=== PATIENT | female | born 1995 | race Caucasian/White ===

== ENCOUNTER 2020-03-12 21:20 | Emergency (ER) | payer OTHER ==
[2020-03-12] MEDS ORDERED: ACETAMINOPHEN 325 MG TABLET PO ONE (21:53)
[2020-03-12] MEDS ORDERED: IBUPROFEN 600 MG TABLET PO ONE (21:53)
--- NOTE | 2020-03-12 21:57 | ER Document Report ---
ED Medical Screen (RME) - General Chief Complaint: Foot Pain Stated Complaint: RIGHT FOOT INJURY Time Seen by Provider: 03/12/20 21:49 Mode of Arrival: Wheelchair Information source: Patient Notes: Pt with c/o R foot pain after she abruptly got up off the couch. She reports a hx of foot fracture in 2012. Strong dorsalis pedis pulse, no obvious deformity. I have greeted and performed a rapid initial assessment of this patient. A comprehensive ED assessment and evaluation of the patient, analysis of test results and completion of the medical decision making process will be conducted by additional ED providers. I have specifically instructed the patient or family members with the patient to immediately return to any nursing staff should anything change in the patient's condition or with their chief complaint. - Related Data Allergies/Adverse Reactions: No Known Allergies Allergy (Verified 03/12/20 21:47) Home Medications: levothyroxine, salima Past Medical History - Social History Frequency of alcohol use: None Drug Abuse: None Physical Exam - Vital signs Vitals: Temp Pulse Resp BP Pulse Ox 98.5 F 103 H 15 145/81 H 100 03/12/20 21:45 03/12/20 21:45 03/12/20 21:45 03/12/20 21:45 03/12/20 21:45 Course - Vital Signs Vital signs: Temp Pulse Resp BP Pulse Ox 98.5 F 103 H 15 145/81 H 100 03/12/20 21:45 03/12/20 21:45 03/12/20 21:45 03/12/20 21:45 03/12/20 21:45
--- NOTE | 2020-03-12 22:43 | RADIOLOGY REPORT (SQ) ---
EXAM DESCRIPTION: XR FOOT 3 OR MORE VIEWS COMPLETED DATE/TME: 03/12/2020 21:52 CLINICAL HISTORY: 24 years, Female, foot pain COMPARISON: None. NUMBER OF VIEWS: 3 TECHNIQUE: 3 views right foot LIMITATIONS: None. FINDINGS: Negative for acute fracture or dislocation. Soft tissues are unremarkable IMPRESSION: Negative exam copyright 2011 [employer]- All Rights Reserved
[2020-03-13 01:45] VITALS: BP 122/59
== END 2020-03-13 02:59 | disposition left against medical advice (07) ==
LOC: ER 21:20
DX: M79.671 Pain in right foot (principal); Z79.899 Other long term (current) drug therapy; Z79.3 Long term (current) use of hormonal contraceptives; Z53.20 Procedure and treatment not carried out because of patient's decision for unspecified reasons
CPT/HCPCS: 99281

== ENCOUNTER 2020-05-27 18:00 | Emergency (ER) | payer OTHER ==
--- NOTE | 2020-05-27 18:25 | ER Document Report ---
ED Medical Screen (RME) - General Mode of Arrival: Ambulatory Information source: Patient <ANANDA WILKERSON - Last Filed: 05/27/20 18:23> <SHEY VEGA P - Last Filed: 05/28/20 00:09> - General Chief Complaint: Abdominal Pain Stated Complaint: ABDOMINAL PAIN Time Seen by Provider: 05/27/20 18:22 Primary Care Provider: MELISSA LOPEZ NP [Primary Care Provider] - Follow up as needed JE RODRIGUEZ MD [ACTIVE STAFF] - 05/28/20 Notes: 25-year-old female presented to ED for abdominal pain sharp pain at the right upper quadrant 6 weeks and nausea. She states she is 8 para 4 but did lose one of the children so now she has 3 living children. She is alert oriented respirations regular nonlabored speaking in full sentences. She states she has had problems with her gallbladder with several of her children in the past. She is a former smoker but no longer smokes does not use any alcohol or drugs. I have greeted and performed a rapid initial assessment of this patient. A comprehensive ED assessment and evaluation of the patient, analysis of test results and completion of medical decision making process will be conducted by an additional ED providers. (ANANDA WILKERSON) - Related Data Allergies/Adverse Reactions: No Known Allergies Allergy (Verified 05/27/20 18:14) Past Medical History - Social History Chew tobacco use (# tins/day): No Frequency of alcohol use: None Drug Abuse: None <ANANDA WILKERSON - Last Filed: 05/27/20 18:23> Physical Exam - Vital signs Vitals: Temp Pulse Resp BP Pulse Ox 98.4 F 104 H 20 149/79 H 98 05/27/20 18:03 05/27/20 18:03 05/27/20 18:03 05/27/20 18:03 05/27/20 18:03 Course - Laboratory Results Result Diagrams: 05/27/20 18:34 05/27/20 18:34 Critical Laboratory Results Reviewed: No Critical Results - Radiology Results Critical Radiology Results Reviewed: No Critical Results <SHEY VEGA P - Last Filed: 05/28/20 00:09> - Vital Signs Vital signs: Temp Pulse Resp BP Pulse Ox 98.4 F 104 H 20 149/79 H 98 05/27/20 18:03 05/27/20 18:03 05/27/20 18:03 05/27/20 18:03 05/27/20 18:03 - Laboratory Results Laboratory Results Interpreted: 05/27/20 05/27/20 05/27/20 18:34 18:34 18:34 WBC 11.8 H Hgb 11.6 L Hct 34.9 L MCV 79 L MCH 26.1 L RDW 14.4 H Beta HCG, Quant 4055.70 H Ur Leukocyte Esterase TRACE H Doctor's Discharge <ANANDA WILKERSON - Last Filed: 05/27/20 18:23> <SHEY VEGA - Last Filed: 05/28/20 00:09> - Discharge Clinical Impression: Right flank pain Condition: Stable Disposition: HOME, SELF-CARE Instructions: Abdominal Pain ([facility]), Antinausea Medication ([facility]), ([facility]) Additional Instructions: Clear liquids for 24 hours. Take the vitamins and nausea medicine as directed. Your blood pressure was just a bit elevated, it should be rechecked. Please return here for any problems or any concerns. Call the Ob doctor in follow up. Call them tomorrow. Return here for fever, abdominal pain, other problems or other concerns. Sal has been sent your perscriptions. Prescriptions: No115/Iron/Folic Acid [ 19 Chewable Tablet] 1 each PO DAILY #30 tab.chew Ondansetron [Zofran Odt 4 mg Tablet] 1 - 2 tab PO Q4H PRN #15 tab.rapdis PRN Reason: For Nausea/Vomiting Referrals: MELISSA LOPEZ NP [Primary Care Provider] - Follow up as needed JE RODRIGUEZ MD [ACTIVE STAFF] - 05/28/20
[2020-05-27 18:57] LABS: ABSOLUTE BASOPHILS # (AUTO) 0.1 10^3/uL (0.0-0.2); ABSOLUTE EOSINOPHILS # (AUTO) 0.2 10^3/uL (0.0-0.6); ABSOLUTE LYMPHOCYTES (AUTO) 3.4 10^3/uL (0.5-4.7); ABSOLUTE MONOCYTES (AUTO) 0.6 10^3/uL (0.1-1.4); ABSOLUTE NEUT (AUTO) 7.5 10^3/uL (1.7-8.2); BASOPHILS % (AUTO) 0.5 % (0-2); EOSINOPHILS % (AUTO) 1.4 % (0-6); HEMATOCRIT 34.9 % (36.0-47.0); HEMOGLOBIN 11.6 g/dL (12.0-15.5); MEAN CORPUSCULAR HEMOGLOBIN 26.1 pg (27.0-33.4); MEAN CORPUSCULAR HGB CONC 33.1 g/dL (32.0-36.0); MEAN CORPUSCULAR VOLUME 79 fl (80-97); MONOCYTES % (AUTO) 5.1 % (3-13); PLATELET COUNT 406 10^3/uL (150-450); RED BLOOD COUNT 4.44 10^6/uL (3.72-5.28); RED CELL DISTRIBUTION WIDTH 14.4 % (11.5-14.0); TOTAL CELLS COUNTED % (AUTO) 100 %; WHITE BLOOD COUNT 11.8 10^3/uL (4.0-10.5)
[2020-05-27 19:11] LABS: APPEARANCE,URINE SLIGHTLY-CLOUDY; BILIRUBIN,URINE NEGATIVE (NEGATIVE); COLOR,URINE YELLOW; GLUCOSE, URINE NEGATIVE (NEGATIVE); KETONES,URINE NEGATIVE (NEGATIVE); LEUKOCYTE ESTERASE,URINE TRACE (NEGATIVE); NITRITE,URINE NEGATIVE (NEGATIVE); PROTEIN,URINE NEGATIVE (NEGATIVE); UROBILINOGEN,URINE NEGATIVE mg/dL (<2.0)
[2020-05-27 19:23] LABS: ALBUMIN 4.3 g/dL (3.5-5.0); ALKALINE PHOSPHATASE 92 U/L (38-126); ANION GAP 8 (5-19); ASPARTATE AMINO TRANSFERASE 21 U/L (14-36); BILIRUBIN,DIRECT 0.2 mg/dL (0.0-0.4); BILIRUBIN,TOTAL 0.3 mg/dL (0.2-1.3); BLOOD UREA NITROGEN 7 mg/dL (7-20); CALCIUM 9.4 mg/dL (8.4-10.2); CARBON DIOXIDE 23 mmol/L (22-30); CHLORIDE 107 mmol/L (98-107); GLUCOSE 102 mg/dL (75-110); POTASSIUM 4.4 mmol/L (3.6-5.0); TOTAL PROTEIN 7.5 g/dL (6.3-8.2)
--- NOTE | 2020-05-27 20:45 | RADIOLOGY REPORT (SQ) ---
EXAM DESCRIPTION: U/S ABDOMEN LIMITED W/O DOP CLINICAL HISTORY: 25 years Female; Right upper quadrant abdominal pain with nausea TECHNIQUE: Abdominal ultrasound was performed. COMPARISON: None. FINDINGS: Pancreas: Pancreas is not well seen secondary to overlying bowel gas. Liver: Liver measures 17 cm in length. Echogenicity is somewhat heterogeneous. Portal vein is patent with hepatopedal flow. . Gallbladder: The gallbladder is small and contracted. The bladder wall appears thickened. There is a positive sonographic Calixto's. Common bile duct: 2.7 mm. Right kidney: The right kidney measures 11.0 x 4.5 x 4.7 cm. Blood flow is noted throughout. Echogenicity is normal.. No hydronephrosis. Aorta:Visualized portions are within normal limits. IVC: Visualized portions are within normal limits. IMPRESSION: Small contracted gallbladder. No obvious stones. There is a sonographic Calixto's.
--- NOTE | 2020-05-27 20:51 | RADIOLOGY REPORT (SQ) ---
EXAM: U/S OB TRANSVAGINAL W/O DOP CLINICAL INDICATION: Pain. COMPARISON: None. TECHNIQUE: First trimester OB ultrasound was performed. FINDINGS: Uterus: The uterus is anteverted. It measures 10.0 x 6.7 x 6.8 cm. The cervix is closed and measures 1.4 cm in length. Within the mid uterus is an ill-defined hypoechoic area which measures 8.5 mm. This may represent a small pocket of fluid or gestational sac. If it is a gestational sac than it ages at five weeks five days. It is oval in shape and was only measured in a single dimension. No pole. No crown-rump length. Ovaries and adnexa: The left ovary measures 3.0 x 3.9 x 2.8 cm. Vascularity and blood flow was not assessed. The right ovary measures 4.1 x 2.2 x 1.7 cm and is morphologically normal. Blood flow was not assessed. No adnexal mass. No free fluid. IMPRESSION: Possible fluid versus gestational sac in the uterus. Viability is indeterminate. If this is a gestational sac within the estimated gestational age is five weeks five days.
--- NOTE | 2020-05-27 23:34 | ER Document Report ---
Entered by DARIA ABDALLA SCRIBE 05/27/20 1872 Acting as scribe for:SHEY VEGA DO ED General - General Chief Complaint: Abdominal Pain Stated Complaint: ABDOMINAL PAIN Time Seen by Provider: 05/27/20 18:22 Primary Care Provider: MELISSA LOPEZ NP [Primary Care Provider] - Follow up as needed JE RODRIGUEZ MD [ACTIVE STAFF] - 05/28/20 Mode of Arrival: Ambulatory Information source: Patient Notes: This 25 year old female patient presents to the emergency department today with right abdominal pain for about x3 days. Patient reports burning pain to her abdomen after eating and has not taken anything for relief. Patient states she is around 5 weeks and . Patient states she recently moved here, has not yet visited OB, or is on any vitamins yet. Patient reports history of acid reflux and cholestasis during 3 of her pregnancies. Patient reports nausea and vomiting during her early . Denies any fever, chills, swelling to her lower extremities, hematuria, or burning with urination. Patient reports dark urine without a strong odor. - Related Data Allergies/Adverse Reactions: No Known Allergies Allergy (Verified 05/27/20 18:14) Past Medical History - General Information source: Patient - Social History Smoking Status: Never Smoker Cigarette use (# per day): No Chew tobacco use (# tins/day): No Frequency of alcohol use: None Drug Abuse: None Lives with: Family Family History: Reviewed & Not Pertinent Past Surgical History: Reports: Hx Appendectomy Review of Systems - Review of Systems Constitutional: See HPI. denies: Chills, Fever EENT: No symptoms reported Cardiovascular: No symptoms reported Respiratory: No symptoms reported Gastrointestinal: See HPI, Abdominal pain - right, Nausea, Vomiting Genitourinary: See HPI, Other - dark urine without odor. denies: Burning, He maturia Female Genitourinary: See HPI, Musculoskeletal: See HPI. denies: Leg swelling Skin: No symptoms reported Hematologic/Lymphatic: No symptoms reported Neurological/Psychological: No symptoms reported -: Yes All other systems reviewed and negative Physical Exam - Vital signs Vitals: Temp Pulse Resp BP Pulse Ox 98.4 F 104 H 20 149/79 H 98 05/27/20 18:03 05/27/20 18:03 05/27/20 18:03 05/27/20 18:03 05/27/20 18:03 - General General appearance: Appears well, Alert - HEENT Head: Normocephalic, Atraumatic Eyes: Normal Pupils: PERRL - Respiratory Respiratory status: No respiratory distress Chest status: Nontender Breath sounds: Normal Chest palpation: Normal - Cardiovascular Rhythm: Regular Heart sounds: Normal auscultation Murmur: No - Abdominal Inspection: Gravid female, Obese Distension: No distension Bowel sounds: Normal Tenderness: Tender - R anterior flank - Extremities General upper extremity: Normal inspection, Normal ROM General lower extremity: Normal inspection, Normal ROM. No: Edema - Neurological Neuro grossly intact: Yes Cognition: Normal Orientation: AAOx4 Reynolds Coma Scale Eye Opening: Spontaneous Tod Coma Scale Verbal: Oriented Tod Coma Scale Motor: Obeys Commands Reynolds Coma Scale Total: 15 Speech: Normal Motor strength normal: LUE, RUE, LLE, RLE Sensory: Normal - Psychological Associated symptoms: Normal affect, Normal mood - Skin Skin Temperature: Warm Skin Moisture: Dry Skin Color: Normal Course - Re-evaluation Re-evalutation: 05/27/20 23:26 MDM 25 year old female arrives with mom with right sided abd pain for about 3 days. No fever or chills. somewhere about 5 weeks. No care to this point. No chest pain or sob. Workup here is reassuring and we discussed Ob follow up and altering diet and she and mom expressed understanding. - Vital Signs Vital signs: Temp Pulse Resp BP Pulse Ox 98.4 F 104 H 20 149/79 H 98 05/27/20 18:03 05/27/20 18:03 05/27/20 18:03 05/27/20 18:03 05/27/20 18:03 - Laboratory Results Result Diagrams: 05/27/20 18:34 05/27/20 18:34 Laboratory Results Interpreted: 05/27/20 05/27/20 05/27/20 18:34 18:34 18:34 WBC 11.8 H Hgb 11.6 L Hct 34.9 L MCV 79 L MCH 26.1 L RDW 14.4 H Beta HCG, Quant 4055.70 H Ur Leukocyte Esterase TRACE H Critical Laboratory Results Reviewed: No Critical Results - Radiology Results Critical Radiology Results Reviewed: No Critical Results Discharge - Discharge Clinical Impression: Right flank pain Condition: Stable Disposition: HOME, SELF-CARE Instructions: Abdominal Pain ([facility]), Antinausea Medication ([facility]), ([facility]) Additional Instructions: Clear liquids for 24 hours. Take the vitamins and nausea medicine as directed. Your blood pressure was just a bit elevated, it should be rechecked. Please return here for any problems or any concerns. Call the Ob doctor in follow up. Call them tomorrow. Return here for fever, abdominal pain, other problems or other concerns. Estellajemmazaida has been sent your perscriptions. Prescriptions: No115/Iron/Folic Acid [ 19 Chewable Tablet] 1 each PO DAILY #30 tab.chew Ondansetron [Zofran Odt 4 mg Tablet] 1 - 2 tab PO Q4H PRN #15 tab.rapdis PRN Reason: For Nausea/Vomiting Referrals: MELISSA LOPEZ NP [Primary Care Provider] - Follow up as needed EJ RODRIGUEZ MD [ACTIVE STAFF] - 05/28/20 I personally performed the services described in the documentation, reviewed and edited the documentation which was dictated to the scribe in my presence, and it accurately records my words and actions.
[2020-05-27] MEDS ORDERED: ONDANSETRON ODT 4 MG TAB (6 TAB/ER DISP) PO PRN (23:36)
[2020-05-28 00:25] VITALS: BP 109/61
== END 2020-05-28 00:26 | disposition home or self-care (01) ==
LOC: ER 18:00
DX: O99.611 Diseases of the digestive system complicating pregnancy, first trimester (principal); K82.0 Obstruction of gallbladder; O26.891 Other specified pregnancy related conditions, first trimester; R10.9 Unspecified abdominal pain; R39.89 Other symptoms and signs involving the genitourinary system; O21.9 Vomiting of pregnancy, unspecified; Z90.49 Acquired absence of other specified parts of digestive tract; Z3A.01 Less than 8 weeks gestation of pregnancy
CPT/HCPCS: 36415; 76705; 76817; 80053; 81001; 83690; 84702; 85025; 87086; 99284